=== PATIENT | male | born 1940 | race Asian ===

== ENCOUNTER → 2016-11-10 | Outpatient (CLI) | payer MEDICARE, MEDICAID ==
[~2016-11-10] MED LIST: ASP81TEC PO; CATHETER FLUSH 10 ML SYR IV PRN; CIPR500T78 PO; HYDR-3714 PO; OLME20TA21 PO; OMG1KC PO; PRAS10TA6 PO; ROSU20TA14 PO; SILO8CAP PO
[2016-11-10 09:29] VITALS: BP 159/85
[2016-11-10 09:33] VITALS: BP 136/82
[2016-11-10 09:34] LABS: ALANINE AMINOTRANSFERASE 27 U/L (0-55); ALBUMIN 4.3 GM/DL (3.2-4.5); ANION GAP 9 MMOL/L (5-14); ASPARTATE AMINO TRANSFERASE 22 U/L (5-34); BLOOD UREA NITROGEN 21 MG/DL (7-18); BUN/CREATININE RATIO 24; CALCIUM 9.6 MG/DL (8.5-10.1); CARBON DIOXIDE 26 MMOL/L (21-32); CHLORIDE 106 MMOL/L (98-107); CHOLESTEROL 125 MG/DL (< 200); CREATININE SERUM 0.88 MG/DL (0.60-1.30); DIRECT LDL 66 MG/DL (1-129); GFR ESTIMATED > 60; GLUCOSE 102 MG/DL (70-105); POTASSIUM 4.5 MMOL/L (3.6-5.0); SODIUM 141 MMOL/L (135-145); TOTAL PROTEIN 7.2 GM/DL (6.4-8.2); TRIGLYCERIDES 85 MG/DL (<150); VLDL CHOLESTEROL 17 MG/DL (5-40)
--- NOTE | 2016-11-11 08:40 | STRESS TEST ---
DATE OF SERVICE: 11/10/2016 REFERRING PHYSICIAN: Dr. Rocio Carter, [facility]. FINDINGS: Baseline heart rate is 68. Baseline blood pressure 116/77. Baseline EKG is sinus rhythm with no ischemic changes. SUMMARY: The patient started exercising with the baseline heart rate, blood pressure and EKG mentioned above. At minute 5 patient was injected with 27.7 mCi of technetium-99 Myoview. He was able to finish a total of 6 minutes on standard Jayy protocol, achieving maximum heart rate of 135, which is 95% of maximum expected heart rate. With peak exercise level EKG was showing no arrhythmia, minimal and diagnostic changes. Blood pressure at peak was 159/85, during recovery heart rate and blood pressure returned to baseline. EKG returned to baseline. The resting and stress images were reviewed and compared in the short axis, horizontal long axis, and vertical long axis views. Review of the images showed diaphragmatic attenuation with no significant ischemia or infarction. SSS is 2, SDS 2, TID value 1.02. On the gated images, the left ventricle appeared to be a normal size with normal contractility, calculated ejection fraction 61%. CONCLUSION: 1. Good exercise tolerance, a total of 6 minutes/7.3 mets on standard Jayy protocol, achieving 95% of maximum expected heart rate. 2. Appropriate heart rate and blood pressure response to exercise returned to baseline during recovery. 3. Minimal and diagnostic EKG changes with exercise returned to baseline during recovery. 4. Diaphragmatic attenuation with no ischemia or infarction on SPECT images. 5. Normal left ventricular size with normal contractility, calculated ejection fraction 61%. Job ID: [id number] DocumentID: [id number] Dictated Date: 11/10/2016 14:12:14 Laser Systems Engineer Date: 11/10/2016 14:28:58 Dictated By: CLAUDIA VELA MD
--- NOTE | 2016-11-11 13:48 | Physician Query-Final Dx ---
NARCISA MANCIA 11/11/16 1348: Clinic Account Progress/Dx Physician Query: Please give an additional diagnosis for the PSA test. thank you Date of Service Nov 10, 2016 at 07:35 CLAUDIA VELA MD 11/16/16 1547: Clinic Account Progress/Dx DIAGNOSIS: Diagnosis Benign prostatic hypertrophy Dysuria NARCISA MANCIA Nov 11, 2016 13:48 CLAUDIA VELA MD Nov 16, 2016 15:47
== END ==
LOC: CARD 07:35
PROVIDERS: ATTEND Internal Medicine Cardiovascular Disease
DX: R07.89 Other chest pain (principal); E11.9 Type 2 diabetes mellitus without complications; R39.11 Hesitancy of micturition; I25.83 Coronary atherosclerosis due to lipid rich plaque; I10 Essential (primary) hypertension; E78.2 Mixed hyperlipidemia; N20.0 Calculus of kidney
CPT/HCPCS: 36415; 78452; 80053; 80061; 83036; 84153; 93017

== ENCOUNTER → 2017-05-25 | Outpatient (CLI) | payer MEDICARE, MEDICAID ==
[~2017-05-25] MED LIST changes: -CATHETER FLUSH 10 ML SYR IV PRN
[2017-05-25 14:26] LABS: BASOPHILS % (AUTO) 0 % (0-10); EOSINOPHILS # (AUTO) 0.2 10^3/uL (0.0-0.3); EOSINOPHILS % (AUTO) 2 % (0-10); HEMATOCRIT 41 % (40-54); HEMOGLOBIN 13.6 G/DL (13.3-17.7); LYMPHOCYTES # (AUTO) 2.4 X 10^3 (1.0-4.0); LYMPHOCYTES % (AUTO) 31 % (12-44); MEAN CORPUSCULAR HEMOGLOBIN 31 PG (25-34); MEAN CORPUSCULAR HGB CONC 33 G/DL (32-36); MEAN CORPUSCULAR VOLUME 95 FL (80-99); MEAN PLATELET VOLUME 9.4 FL (7.4-10.4); MONOCYTES # (AUTO) 0.9 X 10^3 (0.0-1.0); MONOCYTES % (AUTO) 12 % (0-12); NEUTROPHILS # (AUTO) 4.3 X 10^3 (1.8-7.8); NEUTROPHILS % (AUTO) 55 % (42-75); PLATELET COUNT 245 10^3/uL (130-400); RED BLOOD COUNT 4.33 10^6/uL (4.35-5.85); RED CELL DISTRIBUTION WIDTH 12.2 % (10.0-14.5); WHITE BLOOD COUNT 7.7 10^3/uL (4.3-11.0)
[2017-05-25 14:31] LABS: BILIRUBIN,URINE NEGATIVE (NEGATIVE); CLARITY,URINE CLEAR; COLOR,URINE YELLOW; GLUCOSE, URINE (UA) NEGATIVE (NEGATIVE); KETONES,URINE NEGATIVE (NEGATIVE); LEUKOCYTE ESTERASE ,URINE 1+ (NEGATIVE); NITRITE,URINE NEGATIVE (NEGATIVE); PH,URINE 6 (5-9); PROTEIN,URINE 2+ (NEGATIVE); UROBILINOGEN,URINE NORMAL (NORMAL)
[2017-05-25 14:42] LABS: BACTERIA,URINE TRACE /HPF
[2017-05-25 14:47] LABS: ALANINE AMINOTRANSFERASE 25 U/L (0-55); ALBUMIN 4.2 GM/DL (3.2-4.5); ALKALINE PHOSPHATASE 59 U/L (40-136); BILIRUBIN,TOTAL 0.5 MG/DL (0.1-1.0); BUN/CREATININE RATIO 16; CALCIUM 9.6 MG/DL (8.5-10.1); CARBON DIOXIDE 29 MMOL/L (21-32); CHLORIDE 104 MMOL/L (98-107); CREATININE SERUM 0.93 MG/DL (0.60-1.30); GFR ESTIMATED > 60; GLUCOSE 105 MG/DL (70-105); POTASSIUM 4.8 MMOL/L (3.6-5.0); SODIUM 140 MMOL/L (135-145); TOTAL PROTEIN 7.3 GM/DL (6.4-8.2)
== END ==
LOC: LAB 14:07
PROVIDERS: ATTEND Internal Medicine Cardiovascular Disease
DX: R00.2 Palpitations (principal); I25.10 Atherosclerotic heart disease of native coronary artery without angina pectoris; E78.2 Mixed hyperlipidemia; I10 Essential (primary) hypertension; R35.8 Other polyuria
CPT/HCPCS: 36415; 80053; 81000; 85025

== ENCOUNTER 2017-06-13 13:00 | Outpatient (CLI) | payer MEDICARE, MEDICAID ==
[~2017-06-13] VITALS: Ht 172.7 cm; Wt 70.8 kg
[2017-06-14] MEDS ORDERED: GLUC-116 PO (13:41)
[2017-06-14] MEDS ORDERED: METF500T4 PO (13:41)
[2017-06-14] MEDS ORDERED: VITA-189 PO (13:41)
[2017-06-14] MEDS ORDERED: MELO15TA39 PO (13:41)
[2017-06-14] MEDS ORDERED: PANT40TA2 PO (14:25)
[2017-06-14] MEDS ORDERED: SUCR1TAB36 PO (14:25)
== END 2017-06-13 13:31 ==
LOC: PREOP 13:00
PROVIDERS: ATTEND Surgery
DX: Z01.818 Encounter for other preprocedural examination (principal); Z12.11 Encounter for screening for malignant neoplasm of colon; K21.9 Gastro-esophageal reflux disease without esophagitis

== ENCOUNTER 2017-06-14 12:21 | Day surgery (SDC) | payer MEDICARE, MEDICAID ==
[~2017-06-14] VITALS: Ht 172.7 cm; Wt 70.8 kg
--- OUTSIDE RECORDS SUMMARY | 2017-06-14 12:25 | XMS REPORT | Continuity of Care Document ---
Author Author [facility] Address Unknown Phone Unavailable Allergies Active Description Code Type Severity Reaction Onset Reported/Identified Relationship to Patient Clinical Status Yes No Known Drug Allergies [id number] Drug Allergy Unknown N/A 10/28/2012 Medications There is no data. Problems Date Dx Coded Attending Type Code Diagnosis Diagnosed By 12/21/2010 JULI OLGUIN DO V03.82 PPV23 (PNEUMOVAX) DX 12/21/2010 JULI OLGUIN DO V06.1 TDAP DX 12/21/2010 WHITE DDS, MEHRAN Manriquez V03.82 PPV23 (PNEUMOVAX) DX 12/21/2010 WHITE DDS, MEHRAN Manriquez V06.1 TDAP DX 12/21/2010 PURVI DDS, AMAURY Restrepo V03.82 PPV23 (PNEUMOVAX) DX 12/21/2010 PURVI DDS, AMAURY Restrepo V06.1 TDAP DX 12/21/2010 JULI OLGUIN DO V03.82 PPV23 (PNEUMOVAX) DX 12/21/2010 JULI OLGUIN DO V06.1 TDAP DX 12/21/2010 WHITE DDS, MARANDA Rayo V03.82 PPV23 (PNEUMOVAX) DX 12/21/2010 WHITE DDS, MARANDA Rayo V06.1 TDAP DX 10/28/2012 CLAUDIA CANTOR MD Ot 401.9 HYPERTENSION NOS 10/28/2012 CLAUDIA CANTOR MD Ot 411.1 INTERMED CORONARY SYND 10/28/2012 CLAUDIA CANTOR MD Ot 414.01 CORONARY ATHEROSCLEROSIS OF [place] CORON 10/28/2012 CLAUDIA CANTOR MD Ot V13.01 PERSONAL HISTORY OF URINARY CALCULI 10/28/2012 CLAUDIA CANTOR MD Ot V58.69 OTH MED,LT,CURRENT USE 01/08/2013 JULI OLGUIN DO 250.00 DIABETES II CONTROLLED (UNCOMPLICATED) 01/08/2013 JULI OLGUIN DO 414.00 CAD 01/08/2013 OLGUIN DO, JULI K 550.90 HERNIA INGUINAL 01/08/2013 OLGUIN DO, JULI K 600.00 BPH W/O OBSTRUCTUION 01/08/2013 OLGUIN DO, JULI K V04.81 FLU SHOT 01/08/2013 OLGUIN DO, JULI K V70.0 EXAM - ROUTINE H&P 01/08/2013 OLGUIN DO, JULI K V76.44 PROSTATE CANCER SCREENING 01/08/2013 WHITE DDS, MEHRAN D 250.00 DIABETES II CONTROLLED (UNCOMPLICATED) 01/08/2013 WHITE DDS, MEHRAN D 414.00 CAD 01/08/2013 WHITE DDS, MEHRAN D 550.90 HERNIA INGUINAL 01/08/2013 WHITE DDS, MEHRAN D 600.00 BPH W/O OBSTRUCTUION 01/08/2013 WHITE DDS, MEHRAN D V04.81 FLU SHOT 01/08/2013 WHITE DDS, MEHRAN D V70.0 EXAM - ROUTINE H&P 01/08/2013 WHITE DDS, MEHRAN Manriquez V76.44 PROSTATE CANCER SCREENING 01/08/2013 PURVI DDS, AMAURY Restrepo 250.00 DIABETES II CONTROLLED (UNCOMPLICATED) 01/08/2013 PURVI DDS, AMAURY Restrepo 414.00 CAD 01/08/2013 PURVI DDS, AMAURY Restrepo 550.90 HERNIA INGUINAL 01/08/2013 PURVI DDS, AMAURY M 600.00 BPH W/O OBSTRUCTUION 01/08/2013 PURVI DDS, AMAURY aKye V04.81 FLU SHOT 01/08/2013 PURVI DDS, AMAURY Restrepo V70.0 EXAM - ROUTINE H&P 01/08/2013 PURVI DDS, AMAURY Restrepo V76.44 PROSTATE CANCER SCREENING 01/08/2013 OLGUIN DO, JULI K 250.00 DIABETES II CONTROLLED (UNCOMPLICATED) 01/08/2013 OLGUIN DO, JULI K 414.00 CAD 01/08/2013 OLGUIN DO, JULI K 550.90 HERNIA INGUINAL 01/08/2013 OLGUIN DO, JULI K 600.00 BPH W/O OBSTRUCTUION 01/08/2013 OLGUIN DO, JULI K V04.81 FLU SHOT 01/08/2013 OLGUIN DO, JULI K V70.0 EXAM - ROUTINE H&P 01/08/2013 OLGUIN DO, JULI K V76.44 PROSTATE CANCER SCREENING 01/08/2013 WHITE DDS, MARANDA Rayo 250.00 DIABETES II CONTROLLED (UNCOMPLICATED) 01/08/2013 WHITE DDSGURINDERON J 414.00 CAD 01/08/2013 WHITE DDSMARANDA J 550.90 HERNIA INGUINAL 01/08/2013 WHITE DDS, MARANDA J 600.00 BPH W/O OBSTRUCTUION 01/08/2013 WHITE DDSGURINDERON J V04.81 FLU SHOT 01/08/2013 WHITE DDSGURINDERON J V70.0 EXAM - ROUTINE H&P 01/08/2013 WHITE DDSMARANDA J V76.44 PROSTATE CANCER SCREENING 01/09/2013 JULI OLGUIN DO K V05.8 ZOSTAVAX DX 01/09/2013 WHITE DDSMEHRAN V05.8 ZOSTAVAX DX 01/09/2013 PURVI TERESASAMAURY V05.8 ZOSTAVAX DX 01/09/2013 JULI OLGUIN DO K V05.8 ZOSTAVAX DX 01/09/2013 WHITE DDSMARANDA J V05.8 ZOSTAVAX DX 12/11/2013 JACKIE SIMS, RADHAMES Pickett Ot 592.1 CALCULUS OF URETER 12/11/2013 JACKIE SIMS, RADHAMES Pickett Ot 789.09 ABDOMINAL PAIN, OTHER SPECIFIED SITE 12/24/2013 CLAU CHRISTY JULI K 272.4 HYPERLIPIDEMIA 12/24/2013 SEEMA OLGUIN DOA K 401.1 HYPERTENSION, BENIGN ESSENTIAL 12/24/2013 SEEMA OLGUIN DOA K 592.0 CALCULUS OF KIDNEY 12/24/2013 SEEMA OLGUIN DOA K 715.00 OSTEOARTHROSIS GENERALIZED INVOLVING UNSPECIFIED SITE 12/24/2013 WHITE DDSMARANDA J 272.4 HYPERLIPIDEMIA 12/24/2013 WHITE DDSMARANDA J 401.1 HYPERTENSION, BENIGN ESSENTIAL 12/24/2013 WHITE DDSMARANDA J 592.0 CALCULUS OF KIDNEY 12/24/2013 WHITE DDSMARANDA J 715.00 OSTEOARTHROSIS GENERALIZED INVOLVING UNSPECIFIED SITE 02/01/2014 CLAUDIA CANTOR MD Ot 396.3 02/01/2014 CLAUDIA CANTOR MD Ot 397.0 02/01/2014 CLAUDIA CANTOR MD Ot 414.00 02/01/2014 CLAUDIA CANTOR MD Ot 272.2 02/01/2014 MIRIAN MD, BASHAR J Ot 396.3 02/01/2014 MIRIAN SIMS, CLAUDIA J Ot 397.0 02/01/2014 MIRIAN SIMS, CLAUDIA J Ot 401.9 02/01/2014 MIRIAN SIMS, MARGARETHAR J Ot 414.00 02/01/2014 MIRIAN SIMS, MARGARETHAR J Ot 786.50 02/01/2014 KOFFI SIMS, HARJINDER A Ot 550.90 02/01/2014 KOFFI SIMS, HARJINDER A Ot 592.0 02/01/2014 KOFFI SIMS, HARJINDER A Ot 592.1 02/01/2014 KOFFI SIMS, HARJINDER A Ot 550.90 02/01/2014 KOFFI SIMS, HARJINDER A Ot 592.0 02/01/2014 KOFFI SIMS, HARJINDER A Ot 592.1 02/01/2014 MIRIAN SIMS, CLAUDIA J Ot 272.2 02/01/2014 MIRIAN SIMS, CLAUDIA Rayo Ot 396.3 02/01/2014 MIRIAN SIMS, CLAUDIA J Ot 397.0 02/01/2014 MIRIAN SIMS, CLAUDIA J Ot 401.9 02/01/2014 MIRIAN SIMS, MARGARETHAR J Ot 414.00 02/01/2014 MIRIAN SIMS, CLAUDIA J Ot 786.50 02/06/2014 MIRIAN SIMS, CLAUDIA Rayo Ot 272.2 02/06/2014 MIRIAN SIMS, CLAUDIA J Ot 396.3 02/06/2014 MIRIAN SIMS, CLAUDIA J Ot 397.0 02/06/2014 MIRIAN SIMS, CLAUDIA J Ot 401.9 02/06/2014 MIRIAN SIMS, CLAUDIA J Ot 414.00 02/06/2014 MIRIAN SIMS, CLAUDIA J Ot 786.50 02/06/2014 KOFFI SIMS, HARJINDER A Ot 550.90 02/06/2014 KOFFI SIMS, HARJINDER A Ot 592.0 02/06/2014 KOFFI SIMS, HARJINDER A Ot 592.1 05/29/2015 CLAUDIA CANTOR MD Ot E78.2 05/29/2015 CLAUDIA CANTOR MD J Ot I10 05/29/2015 CLAUDIA CANTOR MD Ot I25.10 05/29/2015 CLAUDIA CANTOR MD Ot R07.9 06/20/2015 CLAUDIA CANTOR MD Ot 396.3 06/20/2015 CLAUDIA CANTOR MD Ot 397.0 06/20/2015 CLAUDIA CANTOR MD Ot 414.00 06/20/2015 CLAUDIA CANTOR MD Ot 272.2 06/20/2015 CLAUDIA CANTOR MD Ot 396.3 06/20/2015 CLAUDIA CANTOR MD Ot 397.0 06/20/2015 CLAUDIA CANTOR MD Ot 401.9 06/20/2015 CLAUDIA CANTOR MD Ot 414.00 06/20/2015 CLAUDIA CANTOR MD Ot 786.50 06/20/2015 HARJINDER PRUETT MD Ot 550.90 06/20/2015 HARJINDER PRUETT MD Ot 592.0 06/20/2015 HARJINDER PRUETT MD Ot 592.1 06/20/2015 CLAUDIA CANTOR MD Ot E78.2 06/20/2015 CLAUDIA CANTOR MD Ot I10 06/20/2015 CLAUDIA CANTOR MD Ot I25.10 06/20/2015 CLAUDIA CANTOR MD Ot R07.9 09/08/2015 CLAUDIA CANTOR MD Ot E78.2 MIXED HYPERLIPIDEMIA 09/08/2015 CLAUDIA CANTOR MD Ot I10 ESSENTIAL (PRIMARY) HYPERTENSION 09/08/2015 CLAUDIA CANTOR MD Ot I25.10 ATHSCL HEART DISEASE OF [place] CORONARY 09/08/2015 CLAUDIA CANTOR MD Ot R07.9 CHEST PAIN, UNSPECIFIED 09/09/2015 CLAUDIA CNATOR MD Ot E78.2 MIXED HYPERLIPIDEMIA 09/09/2015 CLAUDIA CANTOR MD Ot I10 ESSENTIAL (PRIMARY) HYPERTENSION 09/09/2015 CLAUDIA CANTOR MD Ot I25.10 ATHSCL HEART DISEASE OF [place] CORONARY 09/09/2015 CLAUDIA CANTOR MD Ot R07.9 CHEST PAIN, UNSPECIFIED 10/28/2015 CLAUDIA CANTOR MD Ot 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 10/28/2015 CLAUDIA CANTOR MD Ot 397.0 TRICUSPID VALVE DISEASE 10/28/2015 CLAUDIA CANTOR MD Ot 414.00 CORON ATHEROSCLER NOS TYPE VESSEL, NATIV 10/28/2015 CLAUDIA CANTOR MD Ot 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 10/28/2015 CLAUDIA CANTOR MD Ot 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 10/28/2015 CLAUDIA CANTOR MD Ot 397.0 TRICUSPID VALVE DISEASE 10/28/2015 CLAUDIA CANTOR MD Ot 401.9 HYPERTENSION NOS 10/28/2015 CLAUDIA CANTOR MD Ot 414.00 CORON ATHEROSCLER NOS TYPE VESSEL, NATIV 10/28/2015 CLAUDIA CANTOR MD Ot 786.50 CHEST PAIN NOS 10/28/2015 HARJINDER PRUETT MD Ot 550.90 UNILAT INGUINAL HERNIA 10/28/2015 HARJINDER PRUETT MD Ot 592.0 CALCULUS OF KIDNEY 10/28/2015 HARJINDER PRUETT MD Ot 592.1 CALCULUS OF URETER 10/28/2015 CLAUDIA CANTOR MD Ot E78.2 MIXED HYPERLIPIDEMIA 10/28/2015 CLAUDIA CANTOR MD Ot I10 ESSENTIAL (PRIMARY) HYPERTENSION 10/28/2015 CLAUDIA CANTOR MD Ot I25.10 ATHSCL HEART DISEASE OF [place] CORONARY 10/28/2015 CLAUDIA CANTOR MD Ot R07.9 CHEST PAIN, UNSPECIFIED 10/30/2015 CLAUDIA CANTOR MD Ot E78.2 MIXED HYPERLIPIDEMIA 10/30/2015 CLAUDIA CANTOR MD Ot I10 ESSENTIAL (PRIMARY) HYPERTENSION 10/30/2015 CLAUDIA CANTOR MD Ot I25.10 ATHSCL HEART DISEASE OF [place] CORONARY 10/30/2015 CLAUDIA CANTOR MD Ot N20.0 CALCULUS OF KIDNEY 10/30/2015 CLAUDIA CANTOR MD Ot R07.9 CHEST PAIN, UNSPECIFIED 10/30/2015 CLAUDIA CANTOR MD Ot E78.2 MIXED HYPERLIPIDEMIA 10/30/2015 CLAUDIA CANTOR MD Ot I10 ESSENTIAL (PRIMARY) HYPERTENSION 10/30/2015 CLAUDIA CANTOR MD Ot I25.10 ATHSCL HEART DISEASE OF [place] CORONARY 10/30/2015 CLAUDIA CANTOR MD Ot N20.0 CALCULUS OF KIDNEY 10/30/2015 CLAUDIA CANTOR MD Ot R07.9 CHEST PAIN, UNSPECIFIED 11/04/2015 CLAUDIA CANTOR MD Ot 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 11/04/2015 CLAUDIA CANTOR MD Ot 397.0 TRICUSPID VALVE DISEASE 11/04/2015 CLAUDIA CANTOR MD Ot 414.00 CORON ATHEROSCLER NOS TYPE VESSEL, NATIV 11/04/2015 CLAUDIA CANTOR MD Ot 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 11/04/2015 CLAUDIA CANTOR MD Ot 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 11/04/2015 CLAUDIA CANTOR MD Ot 397.0 TRICUSPID VALVE DISEASE 11/04/2015 CLAUDIA CANTOR MD Ot 401.9 HYPERTENSION NOS 11/04/2015 CLAUDIA CANTOR MD Ot 414.00 CORON ATHEROSCLER NOS TYPE VESSEL, NATIV 11/04/2015 CLAUDIA CANTOR MD Ot 786.50 CHEST PAIN NOS 11/04/2015 KOFFI SIMS, HARJINDER Pope Ot 550.90 UNILAT INGUINAL HERNIA 11/04/2015 HARJINDER PRUETT MD Ot 592.0 CALCULUS OF KIDNEY 11/04/2015 HARJINDER PRUETT MD Ot 592.1 CALCULUS OF URETER 11/04/2015 CLAUDIA CANTOR MD Ot E78.2 MIXED HYPERLIPIDEMIA 11/04/2015 CLAUDIA CANTOR MD Ot I10 ESSENTIAL (PRIMARY) HYPERTENSION 11/04/2015 CLAUDIA CANTOR MD Ot I25.10 ATHSCL HEART DISEASE OF [place] CORONARY 11/04/2015 CLAUDIA CANTOR MD Ot R07.9 CHEST PAIN, UNSPECIFIED 11/04/2015 CLAUDIA CANTOR MD Ot E78.2 MIXED HYPERLIPIDEMIA 11/04/2015 CLAUDIA CANTOR MD Ot I10 ESSENTIAL (PRIMARY) HYPERTENSION 11/04/2015 CLAUDIA CANTOR MD Ot I25.10 ATHSCL HEART DISEASE OF [place] CORONARY 11/04/2015 CLAUDIA CANTOR MD Ot N20.0 CALCULUS OF KIDNEY 11/04/2015 CLAUDIA CANTOR MD Ot R07.9 CHEST PAIN, UNSPECIFIED 12/04/2015 CLAUDIA CANTOR MD Ot E78.2 MIXED HYPERLIPIDEMIA 12/04/2015 CLAUDIA CANTOR MD Ot I10 ESSENTIAL (PRIMARY) HYPERTENSION 12/04/2015 CLAUDIA CANTOR MD Ot I25.10 ATHSCL HEART DISEASE OF [place] CORONARY 12/04/2015 CLAUDIA CANTOR MD Ot N20.0 CALCULUS OF KIDNEY 12/04/2015 CLAUDIA CANTOR MD Ot R07.9 CHEST PAIN, UNSPECIFIED 01/12/2016 CLAUDIA CANTOR MD Ot E11.9 TYPE 2 DIABETES MELLITUS WITHOUT COMPLIC 01/12/2016 CLAUDIA CANTOR MD Ot E78.2 MIXED HYPERLIPIDEMIA 01/12/2016 CLAUDIA CANTOR MD Ot I10 ESSENTIAL (PRIMARY) HYPERTENSION 01/12/2016 CLAUDIA CANTOR MD Ot I25.10 ATHSCL HEART DISEASE OF [place] CORONARY 01/12/2016 CLAUDIA CANTOR MD Ot 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 01/12/2016 CLAUDIA CANTOR MD Ot 397.0 TRICUSPID VALVE DISEASE 01/12/2016 CLAUDIA CANTOR MD Ot 414.00 CORON ATHEROSCLER NOS TYPE VESSEL, NATIV 01/12/2016 CLAUDIA CANTOR MD Ot 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 01/12/2016 CLAUDIA CANTOR MD Ot 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 01/12/2016 CLAUDIA CANTOR MD Ot 397.0 TRICUSPID VALVE DISEASE 01/12/2016 CLAUDIA CANTOR MD Ot 401.9 HYPERTENSION NOS 01/12/2016 CLAUDIA CANTOR MD Ot 414.00 CORON ATHEROSCLER NOS TYPE VESSEL, NATIV 01/12/2016 CLAUDIA CANTOR MD Ot 786.50 CHEST PAIN NOS 01/12/2016 KOFFI SIMS, HARJINDER Pope Ot 550.90 UNILAT INGUINAL HERNIA 01/12/2016 HARJINDER PRUETT MD Ot 592.0 CALCULUS OF KIDNEY 01/12/2016 HARJINDER PRUETT MD Ot 592.1 CALCULUS OF URETER 01/12/2016 CLAUDIA CANTOR MD Ot E78.2 MIXED HYPERLIPIDEMIA 01/12/2016 CLAUDIA CANTOR MD Ot I10 ESSENTIAL (PRIMARY) HYPERTENSION 01/12/2016 CLAUDIA CANTOR MD Ot I25.10 ATHSCL HEART DISEASE OF [place] CORONARY 01/12/2016 CLAUDIA CANTOR MD Ot R07.9 CHEST PAIN, UNSPECIFIED 01/12/2016 CLAUDIA CANTOR MD Ot E78.2 MIXED HYPERLIPIDEMIA 01/12/2016 CLAUDIA CANTOR MD Ot I10 ESSENTIAL (PRIMARY) HYPERTENSION 01/12/2016 CLAUDIA CANTOR MD Ot I25.10 ATHSCL HEART DISEASE OF [place] CORONARY 01/12/2016 CLAUDIA CANTOR MD Ot N20.0 CALCULUS OF KIDNEY 01/12/2016 CLAUDIA CANTOR MD Ot R07.9 CHEST PAIN, UNSPECIFIED 01/12/2016 CLAUDIA CANTOR MD Ot E11.9 TYPE 2 DIABETES MELLITUS WITHOUT COMPLIC 01/12/2016 CLAUDIA CANTOR MD Ot E78.2 MIXED HYPERLIPIDEMIA 01/12/2016 CLAUDIA CANTOR MD Ot I10 ESSENTIAL (PRIMARY) HYPERTENSION 01/12/2016 CLAUDIA CANTOR MD Ot I25.10 ATHSCL HEART DISEASE OF [place] CORONARY 01/13/2016 CLAUDIA CANTOR MD Ot E11.9 TYPE 2 DIABETES MELLITUS WITHOUT COMPLIC 01/13/2016 CLAUDIA CANTOR MD Ot E78.2 MIXED HYPERLIPIDEMIA 01/13/2016 CLAUDIA CANTOR MD Ot I10 ESSENTIAL (PRIMARY) HYPERTENSION 01/13/2016 CLAUDIA CANTOR MD Ot I25.10 ATHSCL HEART DISEASE OF [place] CORONARY 01/21/2016 JULI OLGUIN DO K Ot M19.042 PRIMARY OSTEOARTHRITIS, LEFT HAND 02/03/2016 JULI OLGUIN DO Ot M19.042 PRIMARY OSTEOARTHRITIS, LEFT HAND 02/03/2016 CLAUDIA CANTOR MD Ot E11.9 TYPE 2 DIABETES MELLITUS WITHOUT COMPLIC 02/03/2016 CLAUDIA CANTOR MD Ot E78.2 MIXED HYPERLIPIDEMIA 02/03/2016 CLAUDIA CANTOR MD Ot I10 ESSENTIAL (PRIMARY) HYPERTENSION 02/03/2016 CLAUDIA CANTOR MD Ot I25.10 ATHSCL HEART DISEASE OF [place] CORONARY 02/03/2016 CLAUDIA CANTOR MD Ot E11.9 TYPE 2 DIABETES MELLITUS WITHOUT COMPLIC 02/03/2016 CLAUDIA CANTOR MD Ot E78.2 MIXED HYPERLIPIDEMIA 02/03/2016 CLAUDIA CANTOR MD Ot I10 ESSENTIAL (PRIMARY) HYPERTENSION 02/03/2016 CLAUDIA CANTOR MD Ot I25.10 ATHSCL HEART DISEASE OF [place] CORONARY 02/04/2016 CLAUDIA CANTOR MD Ot E11.9 TYPE 2 DIABETES MELLITUS WITHOUT COMPLIC 02/04/2016 CLAUDIA CANTOR MD Ot E78.2 MIXED HYPERLIPIDEMIA 02/04/2016 CLAUDIA CANTOR MD Ot I10 ESSENTIAL (PRIMARY) HYPERTENSION 02/04/2016 CLAUDIA CANTOR MD Ot I25.10 ATHSCL HEART DISEASE OF [place] CORONARY 02/04/2016 JULI OLGUIN DO Ot M19.042 PRIMARY OSTEOARTHRITIS, LEFT HAND 03/04/2016 JULI OLGUIN DO Ot M19.042 PRIMARY OSTEOARTHRITIS, LEFT HAND 03/22/2016 CLAUDIA CANTOR MD Ot 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 03/22/2016 CLAUDIA CANTOR MD Ot 397.0 TRICUSPID VALVE DISEASE 03/22/2016 CLAUDIA CANTOR MD Ot 414.00 CORON ATHEROSCLER NOS TYPE VESSEL, NATIV 03/22/2016 CLAUDIA CANTOR MD Ot 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 03/22/2016 CLAUDIA CANTOR MD Ot 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 03/22/2016 CLAUDIA CANTOR MD Ot 397.0 TRICUSPID VALVE DISEASE 03/22/2016 CLAUDIA CANTOR MD Ot 401.9 HYPERTENSION NOS 03/22/2016 CLAUDIA CANTOR MD Ot 414.00 CORON ATHEROSCLER NOS TYPE VESSEL, NATIV 03/22/2016 CLAUDIA CANTOR MD Ot 786.50 CHEST PAIN NOS 03/22/2016 KOFFI SIMS, HARJINDER Pope Ot 550.90 UNILAT INGUINAL HERNIA 03/22/2016 HARJINDER PRUETT MD Ot 592.0 CALCULUS OF KIDNEY 03/22/2016 HARJINDER PRUETT MD Ot 592.1 CALCULUS OF URETER 03/22/2016 CLAUDIA CANTOR MD Ot E78.2 MIXED HYPERLIPIDEMIA 03/22/2016 CLAUDIA CANTOR MD Ot I10 ESSENTIAL (PRIMARY) HYPERTENSION 03/22/2016 CLAUDIA CANTOR MD Ot I25.10 ATHSCL HEART DISEASE OF [place] CORONARY 03/22/2016 CLAUDIA CANTOR MD Ot R07.9 CHEST PAIN, UNSPECIFIED 03/22/2016 CLAUDIA CANTOR MD Ot E78.2 MIXED HYPERLIPIDEMIA 03/22/2016 CLAUDIA CANTOR MD Ot I10 ESSENTIAL (PRIMARY) HYPERTENSION 03/22/2016 CLAUDIA CANTOR MD Ot I25.10 ATHSCL HEART DISEASE OF [place] CORONARY 03/22/2016 CLAUDIA CANTOR MD Ot N20.0 CALCULUS OF KIDNEY 03/22/2016 CLAUDIA CANTOR MD Ot R07.9 CHEST PAIN, UNSPECIFIED 03/22/2016 CLAUDIA CANTOR MD Ot E11.9 TYPE 2 DIABETES MELLITUS WITHOUT COMPLIC 03/22/2016 CLAUDIA CANTOR MD Ot E78.2 MIXED HYPERLIPIDEMIA 03/22/2016 CLAUDIA CANTOR MD Ot I10 ESSENTIAL (PRIMARY) HYPERTENSION 03/22/2016 CLAUDIA CANTOR MD Ot I25.10 ATHSCL HEART DISEASE OF [place] CORONARY 11/10/2016 CLAUDIA CANTOR MD Ot 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 11/10/2016 CLAUDIA CANTOR MD Ot 397.0 TRICUSPID VALVE DISEASE 11/10/2016 CLAUDIA CANTOR MD Ot 414.00 CORON ATHEROSCLER NOS TYPE VESSEL, NATIV 11/10/2016 CLAUDIA CANTOR MD Ot 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 11/10/2016 CLAUDIA CANTOR MD Ot 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 11/10/2016 CLAUDIA CANTOR MD Ot 397.0 TRICUSPID VALVE DISEASE 11/10/2016 CLAUDIA CANTOR MD Ot 401.9 HYPERTENSION NOS 11/10/2016 CLAUDIA CANTOR MD Ot 414.00 CORON ATHEROSCLER NOS TYPE VESSEL, NATIV 11/10/2016 CLAUDIA CANTOR MD Ot 786.50 CHEST PAIN NOS 11/10/2016 KOFFI SIMS, HARJINDER Pope Ot 550.90 UNILAT INGUINAL HERNIA 11/10/2016 HARJINDER PRUETT MD Ot 592.0 CALCULUS OF KIDNEY 11/10/2016 HARJINDER PRUETT MD Ot 592.1 CALCULUS OF URETER 11/10/2016 CLAUDIA CANTOR MD Ot E78.2 MIXED HYPERLIPIDEMIA 11/10/2016 CLAUDIA CANTOR MD Ot I10 ESSENTIAL (PRIMARY) HYPERTENSION 11/10/2016 CLAUDIA CANTOR MD Ot I25.10 ATHSCL HEART DISEASE OF [place] CORONARY 11/10/2016 CLAUDIA CANTOR MD Ot R07.9 CHEST PAIN, UNSPECIFIED 11/10/2016 CLAUDIA CANTOR MD Ot E78.2 MIXED HYPERLIPIDEMIA 11/10/2016 CLAUDIA CANTOR MD Ot I10 ESSENTIAL (PRIMARY) HYPERTENSION 11/10/2016 CLAUDIA CANTOR MD Ot I25.10 ATHSCL HEART DISEASE OF [place] CORONARY 11/10/2016 CLAUDIA CANTOR MD Ot N20.0 CALCULUS OF KIDNEY 11/10/2016 CLAUDIA CANTOR MD Ot R07.9 CHEST PAIN, UNSPECIFIED 11/10/2016 CLAUDIA CANTOR MD Ot E11.9 TYPE 2 DIABETES MELLITUS WITHOUT COMPLIC 11/10/2016 CLAUDIA CANTOR MD Ot E78.2 MIXED HYPERLIPIDEMIA 11/10/2016 CLAUDIA CANTOR MD Ot I10 ESSENTIAL (PRIMARY) HYPERTENSION 11/10/2016 CLAUDIA CANTOR MD Ot I25.10 ATHSCL HEART DISEASE OF [place] CORONARY 12/06/2016 CLAUDIA CANTOR MD Ot E11.9 TYPE 2 DIABETES MELLITUS WITHOUT COMPLIC 12/06/2016 CLAUDIA CANTOR MD Ot E78.2 MIXED HYPERLIPIDEMIA 12/06/2016 CLAUDIA CANTOR MD Ot I10 ESSENTIAL (PRIMARY) HYPERTENSION 12/06/2016 CLAUDIA CANTOR MD Ot I25.83 CORONARY ATHEROSCLEROSIS DUE TO LIPID RI 12/06/2016 CLAUDIA CANTOR MD Ot N20.0 CALCULUS OF KIDNEY 12/06/2016 CLAUDIA CANTOR MD Ot R07.89 OTHER CHEST PAIN 12/06/2016 CLAUDIA CANTOR MD Ot R39.11 HESITANCY OF MICTURITION 12/14/2016 CLAUDIA CANTOR MD Ot E11.9 TYPE 2 DIABETES MELLITUS WITHOUT COMPLIC 12/14/2016 CLAUDIA CANTOR MD Ot E78.2 MIXED HYPERLIPIDEMIA 12/14/2016 CLAUDIA CANTOR MD Ot I10 ESSENTIAL (PRIMARY) HYPERTENSION 12/14/2016 CLAUDIA CANTOR MD Ot I25.83 CORONARY ATHEROSCLEROSIS DUE TO LIPID RI 12/14/2016 CLAUDIA CANTOR MD Ot N20.0 CALCULUS OF KIDNEY 12/14/2016 CLAUDIA CANTOR MD Ot R07.89 OTHER CHEST PAIN 12/14/2016 CLAUDIA CANTOR MD Ot R39.11 HESITANCY OF MICTURITION 05/26/2017 CLAUDIA CANTOR MD Ot E78.2 MIXED HYPERLIPIDEMIA 05/26/2017 CLAUDIA CANTOR MD Ot I10 ESSENTIAL (PRIMARY) HYPERTENSION 05/26/2017 CLAUDIA CANTOR MD Ot I25.10 ATHSCL HEART DISEASE OF [place] CORONARY 05/26/2017 CLAUDIA CANTOR MD Ot R00.2 PALPITATIONS 05/26/2017 CLAUDIA CANTOR MD Ot R35.8 OTHER POLYURIA 06/01/2017 CLAUDIA CANTOR MD Ot E78.2 MIXED HYPERLIPIDEMIA 06/01/2017 CLAUDIA CANTOR MD Ot I10 ESSENTIAL (PRIMARY) HYPERTENSION 06/01/2017 CLAUDIA CANTOR MD Ot I25.10 ATHSCL HEART DISEASE OF [place] CORONARY 06/01/2017 CLAUDIA CANTOR MD Ot R00.2 PALPITATIONS 06/01/2017 CLAUDIA CANTOR MD Ot R35.8 OTHER POLYURIA 06/01/2017 CLAUDIA CANTOR MD Ot E78.2 MIXED HYPERLIPIDEMIA 06/01/2017 CLAUDIA CANTOR MD Ot I10 ESSENTIAL (PRIMARY) HYPERTENSION 06/01/2017 CLAUDIA CANTOR MD Ot I25.10 ATHSCL HEART DISEASE OF [place] CORONARY 06/01/2017 CLAUDIA CANTOR MD Ot R00.2 PALPITATIONS 06/01/2017 CLAUDIA CANTOR MD Ot R35.8 OTHER POLYURIA 06/03/2017 CLAUDIA CANTOR MD Ot E78.2 MIXED HYPERLIPIDEMIA 06/03/2017 CLAUDIA CANTOR MD Ot I10 ESSENTIAL (PRIMARY) HYPERTENSION 06/03/2017 CLAUDIA CANTOR MD Ot I25.10 ATHSCL HEART DISEASE OF [place] CORONARY 06/03/2017 CLAUDIA CANTOR MD Ot R00.2 PALPITATIONS 06/03/2017 CLAUDIA CANTOR MD Ot R35.8 OTHER POLYURIA Procedures Code [place] [address] ROUTINE VENIPUNCTURE 01/08/2013 G0008 FLU ADMINISTRATION ( MEDICARE ONLY) 01/08/2013 46700 CBC 01/08/2013 2767193 GFR CALC (RESULT ONLY) 01/08/2013 27606 CMP 01/08/2013 83750 LIPID PANEL 01/08/2013 01650 A1C (RML) 01/08/2013 82542 TSH 01/08/2013 26727 PSA FREE AND TOTAL 01/12/2013 Cardiolog Claudia Cantor 04/12/2013 Urology Harjinder Pruett 04/12/2013 26148 KUB 12/24/2013 Results Test Result Range Comprehensive metabolic panel - 11/10/16 09:03 Serum or plasma sodium measurement (moles/volume) 141 mmol/L 135-145 Serum or plasma potassium measurement (moles/volume) 4.5 mmol/L 3.6-5.0 Serum or plasma chloride measurement (moles/volume) 106 mmol/L 98-107 Carbon dioxide 26 mmol/L 21-32 Serum or plasma anion gap determination (moles/volume) 9 mmol/L 5-14 Serum or plasma urea nitrogen measurement (mass/volume) 21 mg/dL 7-18 Serum or plasma creatinine measurement (mass/volume) 0.88 mg/dL 0.60-1.30 Serum or plasma urea nitrogen/creatinine mass ratio 24 NRG Serum or plasma creatinine measurement with calculation of estimated glomerular filtration rate > NRG Serum or plasma glucose measurement (mass/volume) 102 mg/dL 70-105 Serum or plasma calcium measurement (mass/volume) 9.6 mg/dL 8.5-10.1 Serum or plasma total bilirubin measurement (mass/volume) 1.0 mg/dL 0.1-1.0 Serum or plasma alkaline phosphatase measurement (enzymatic activity/volume) 49 U/L 40-136 Serum or plasma aspartate aminotransferase measurement (enzymatic activity/ volume) 22 U/L 5-34 Serum or plasma alanine aminotransferase measurement (enzymatic activity/volume ) 27 U/L 0-55 Serum or plasma protein measurement (mass/volume) 7.2 g/dL 6.4-8.2 Serum or plasma albumin measurement (mass/volume) 4.3 g/dL 3.2-4.5 Lipid 1996 panel - 11/10/16 09:03 Serum or plasma triglyceride measurement (mass/volume) 85 mg/dL <150 Serum or plasma cholesterol measurement (mass/volume) 125 mg/dL < 200 Serum or plasma cholesterol in HDL measurement (mass/volume) 46 mg/ dL 40-60 Cholesterol in LDL [mass/volume] in serum or plasma by direct assay 66 mg/dL 1-129 Serum or plasma cholesterol in VLDL measurement (mass/volume) 17 mg/ dL 5-40 Hemoglobin A1c - 11/10/16 09:03 Hemoglobin A1c 5.4 % 4.5-6.2 Prostate specific ag [mass/volume] in serum or plasma - 11/10/16 09:03 Prostate specific ag [mass/volume] in serum or plasma 0.76 % 0.00-4.00 Complete blood count (CBC) with automated white blood cell (WBC) differential - 05/25/17 14:19 Blood leukocytes automated count (number/volume) 7.7 10*3/uL 4.3-11.0 Blood erythrocytes automated count (number/volume) 4.33 10*6/uL 4.35-5.85 Venous blood hemoglobin measurement (mass/volume) 13.6 g/dL 13.3-17.7 Blood hematocrit (volume fraction) 41 % 40-54 Automated erythrocyte mean corpuscular volume 95 [foz_us] 80-99 Automated erythrocyte mean corpuscular hemoglobin (mass per erythrocyte) 31 pg 25-34 Automated erythrocyte mean corpuscular hemoglobin concentration measurement ( mass/volume) 33 g/dL 32-36 Automated erythrocyte distribution width ratio 12.2 % 10.0-14.5 Automated blood platelet count (count/volume) 245 10*3/uL 130-400 Automated blood platelet mean volume measurement 9.4 [foz_us] 7.4-10.4 Automated blood neutrophils/100 leukocytes 55 % 42-75 Automated blood lymphocytes/100 leukocytes 31 % 12-44 Blood monocytes/100 leukocytes 12 % 0-12 Automated blood eosinophils/100 leukocytes 2 % 0-10 Automated blood basophils/100 leukocytes 0 % 0-10 Blood neutrophils automated count (number/volume) 4.3 10*3 1.8-7.8 Blood lymphocytes automated count (number/volume) 2.4 10*3 1.0-4.0 Blood monocytes automated count (number/volume) 0.9 10*3 0.0-1.0 Automated eosinophil count 0.2 10*3/uL 0.0-0.3 Automated blood basophil count (count/volume) 0.0 10*3/uL 0.0-0.1 Comprehensive metabolic panel - 05/25/17 14:19 Serum or plasma sodium measurement (moles/volume) 140 mmol/L 135-145 Serum or plasma potassium measurement (moles/volume) 4.8 mmol/L 3.6-5.0 Serum or plasma chloride measurement (moles/volume) 104 mmol/L 98-107 Carbon dioxide 29 mmol/L 21-32 Serum or plasma anion gap determination (moles/volume) 7 mmol/L 5-14 Serum or plasma urea nitrogen measurement (mass/volume) 15 mg/dL 7-18 Serum or plasma creatinine measurement (mass/volume) 0.93 mg/dL 0.60-1.30 Serum or plasma urea nitrogen/creatinine mass ratio 16 NRG Serum or plasma creatinine measurement with calculation of estimated glomerular filtration rate > NRG Serum or plasma glucose measurement (mass/volume) 105 mg/dL 70-105 Serum or plasma calcium measurement (mass/volume) 9.6 mg/dL 8.5-10.1 Serum or plasma total bilirubin measurement (mass/volume) 0.5 mg/dL 0.1-1.0 Serum or plasma alkaline phosphatase measurement (enzymatic activity/volume) 59 U/L 40-136 Serum or plasma aspartate aminotransferase measurement (enzymatic activity/ volume) 22 U/L 5-34 Serum or plasma alanine aminotransferase measurement (enzymatic activity/volume ) 25 U/L 0-55 Serum or plasma protein measurement (mass/volume) 7.3 g/dL 6.4-8.2 Serum or plasma albumin measurement (mass/volume) 4.2 g/dL 3.2-4.5 Complete urinalysis with reflex to culture - 05/25/17 14:28 Urine color determination YELLOW NRG Urine clarity determination CLEAR NRG Urine pH measurement by test strip 6 5-9 Specific gravity of urine by test strip 1.025 1.016- 1.022 Urine protein assay by test strip, semi-quantitative 2+ NEGATIVE Urine glucose detection by automated test strip NEGATIVE NEGATIVE Erythrocytes detection in urine sediment by light microscopy 2+ NEGATIVE Urine ketones detection by automated test strip NEGATIVE NEGATIVE Urine nitrite detection by test strip NEGATIVE NEGATIVE Urine total bilirubin detection by test strip NEGATIVE NEGATIVE Urine urobilinogen measurement by automated test strip (mass/volume) NORMAL NORMAL Urine leukocyte esterase detection by dipstick 1+ NEGATIVE Automated urine sediment erythrocyte count by microscopy (number/high power field) NONE NRG Automated urine sediment leukocyte count by microscopy (number/high power field ) [HPF] NRG Bacteria detection in urine sediment by light microscopy TRACE NRG Squamous epithelial cells detection in urine sediment by light microscopy NONE NRG Crystals detection in urine sediment by light microscopy NONE NRG Casts detection in urine sediment by light microscopy NONE NRG Mucus detection in urine sediment by light microscopy LARGE NRG Complete urinalysis with reflex to culture NO NRG Encounters ACCT No. Visit Date/Time Discharge Status Pt. Type Provider Facility Loc./Unit Complaint [id number] 06/17/2014 07:54:00 06/17/2014 23:59:59 CLS Outpatient WHITE BRIISMARANDA J [id number] 12/24/2013 09:32:00 12/24/2013 23:59:59 CLS Outpatient JULI OLGUIN DO [id number] 04/12/2013 14:52:00 04/12/2013 23:59:59 CLS Outpatient PURVI DDSAMAURY [id number] 02/12/2013 12:05:00 02/12/2013 23:59:59 CLS Outpatient MEME DDMEHRAN Parker [id number] 01/09/2013 12:27:00 01/09/2013 23:59:59 CLS Outpatient CLAU CHRISTY JULI Workman [id number] 05/25/2017 14:07:00 05/25/2017 23:59:59 CLS Outpatient CLAUDIA CANTOR MD [facility] LAB R00.2 [id number] 11/10/2016 07:35:00 11/10/2016 23:59:59 CLS Outpatient CLAUDIA CANTOR MD [facility] CARD CAD I25.83,HTN I10 [id number] 02/13/2016 08:50:00 03/04/2016 13:46:00 DIS Outpatient JULI OLGUIN DO [facility] REHAB OA B HANDS [id number] 12/26/2015 08:44:00 12/26/2015 23:59:59 CLS Outpatient CLAUDIA CANTOR MD [facility] LAB CAD,MIXED HYPERLIPIDEMIA , HTN, DIABETES [id number] 10/29/2015 07:49:00 10/29/2015 23:59:59 CLS Outpatient CLAUDIA CANTOR MD [facility] CARD CAD,CHEST PAIN,HTN, MIXED HLP [id number] 05/28/2015 08:15:00 05/28/2015 23:59:59 CLS Outpatient CLAUDIA CANTOR MD [facility] LAB CAD, CHEST PAIN, HTN, MIXED HYPERLIPIDEMIA [id number] 12/11/2013 10:26:00 12/11/2013 23:59:59 CLS Outpatient HARJINDER PRUETT MD [facility] RAD LT FLANK PAIN [id number] 12/11/2013 03:51:00 12/11/2013 05:20:00 DIS Emergency BRUEGGEMANN MD, RADHAMES Pickett [facility] ER RENAL COLIC [id number] 11/26/2013 09:21:00 11/26/2013 23:59:59 CLS Outpatient CLAUDIA CANTOR MD [facility] CARD CAD,HTN,CP,HLP [id number] 12/07/2012 11:53:00 12/07/2012 23:59:59 CLS Outpatient CLAUDIA CANTOR MD [facility] CARD CAD [id number] 10/28/2012 08:17:00 10/28/2012 16:00:00 DIS Outpatient CLAUDIA CANTOR MD [facility] CATH CHEST PAIN [id number] 01/28/2017 16:30:00 01/28/2017 23:59:59 CLS Outpatient GERSON CUMMINS [facility] D[facility]
[2017-06-14 12:45] VITALS: BP 129/86
--- NOTE | 2017-06-14 13:27 | Progress Note-Pre Operative ---
Pre-Operative Progress Note H&P Reviewed The H&P was reviewed, patient examined and no changes noted. Date Seen by Provider: Jun 14, 2017 Time Seen by Provider: 13: Date H&P Reviewed: Jun 14, 2017 Time H&P Reviewed: 13:27 Pre-Operative Diagnosis: screening colonoscopy, gerd MADONNA MCKEON DO Jun 14, 2017 13:27
[2017-06-14] MEDS ORDERED: VITA-189 PO (13:41)
[2017-06-14] MEDS ORDERED: METF500T4 PO (13:41)
[2017-06-14] MEDS ORDERED: GLUC-116 PO (13:41)
[2017-06-14] MEDS ORDERED: MELO15TA39 PO (13:41)
[2017-06-14] MEDS ORDERED: LACTATED RINGERS 1,000 ML IV ONE ×2 (13:41→13:45)
[2017-06-14] MEDS ORDERED: proPOfol 200 MG/20 ML (DIPRIVAN) VIAL IV ONE (13:45)
[2017-06-14] MEDS ORDERED: NS IV 500 ML 500 ML IV ONE (14:00)
--- NOTE | 2017-06-14 14:24 | Progress Note-Post Operative ---
Post-Operative Progess Note Surgeon (s)/Telemarketer (s) Surgeon MADONNA MCKEON DO Telemarketer: na Pre-Operative Diagnosis screening colonoscopy, gerd Post-Operative Diagnosis antral ulcer healing, gastritis, hiatal hernia, normal colon Procedure & Operative Findings Date of Procedure 06/14/17 Procedure Performed/Findings egd c biopsies and colonoscopy Anesthesia Type general Estimated Blood Loss Estimated blood loss (mL): none Specimens/Packing Specimens Removed antrum, ge junction MADONNA MCKEON DO Jun 14, 2017 14:24
[2017-06-14] MEDS ORDERED: PANT40TA2 PO (14:25)
[2017-06-14] MEDS ORDERED: SUCR1TAB36 PO (14:25)
--- NOTE | 2017-06-14 14:26 | Discharge Inst-Simple/Standard ---
Discharge Inst-Standard Discharge Medications New, Converted or Re-Newed RX: Transmitted to Pharmacy Patient Instructions/Follow Up Plan of Care/Instructions/FU: 2 weeks joseph Activity as Tolerated: Yes Discharge Diet: Regular Diet MADONNA MCKEON DO Jun 14, 2017 14:26
[2017-06-14 14:30] VITALS: BP 130/82
--- NOTE | 2017-06-14 14:56 | Anesthesia-General Post-Op ---
MAC Patient Condition Mental Status/LOC: Same as Preop Cardiovascular: Satisfactory Nausea/Vomiting: Absent Respiratory: Satisfactory Pain: Controlled Complications: Absent Post Op Complications Complications None Follow Up Care/Instructions Patient Instructions None needed. Anesthesiology Discharge Order Discharge Order Patient is doing well, no complaints, stable vital signs, no apparent adverse anesthesia problems. No complications reported per nursing. REDDY NAVARRETE CRNA Jun 14, 2017 14:56
[2017-06-14 15:00] VITALS: BP 130/82
[2017-06-14 15:15] VITALS: BP 130/82
--- NOTE | 2017-06-14 21:54 | OPERATIVE REPORT ---
DATE OF SERVICE: 06/14/2017 PREOPERATIVE DIAGNOSES: Gastroesophageal reflux disease and screening colonoscopy. POSTOPERATIVE DIAGNOSES: Antral ulcer healing, gastritis, hiatal hernia, normal colon. PROCEDURE: EGD with biopsies of the antrum and GE junction and colonoscopy. SURGEON: Madonna Denny DO ANESTHESIA: Per CERTIFIED OPHTHALMIC SURGICAL ASSISTANT. ESTIMATED BLOOD LOSS: None. COMPLICATIONS: None. INDICATIONS: The patient is a 77-year-old male with gastroesophageal reflux disease and is due for screening colonoscopy. He understands risks and benefits of procedure and wished to proceed with procedure. Consent was on chart. DESCRIPTION OF PROCEDURE: The patient was taken to the endoscopy suite, placed in left lateral recumbent position. Timeout was performed. Scope was inserted into the mouth, down the esophagus, stomach and into the duodenum without difficulty. There were no polyps, mass, or ulceration of the duodenum. Scope was slowly retracted back into the stomach, which was further insufflated. Within the antrum, a small ulceration that appears healing was present. Biopsies of this area were obtained. Scope was retroflexed noting a small hiatal hernia. No other pathology noted. Scope was returned to its normal position. There was some gastritis present. Scope was then slowly retracted back into the distal esophagus. Some slight erythematous changes, no polyps, masses or ulcerations. Biopsy of the GE junction was obtained. Scope was then slowly retracted back to completely remove, noting no other pathology. Digital rectal exam was performed. There were no palpable polyps, masses, ulcerations. Scope was inserted in the rectum and advanced all the way to the cecum with minimal difficulty. Prep was adequate. Scope was then slowly retracted back. There were no polyps, mass or ulcerations within the cecum, ascending, transverse, descending and sigmoid colon. Once in the rectum, scope was also retroflexed noting no other pathology except for some slight hemorrhoidal disease. Scope was then returned to its normal position, slowly withdrawn until completely removed. The patient tolerated procedure well without any complications, taken to recovery room in stable condition. RECOMMENDATIONS: The patient will be started on Protonix 40 mg daily and Carafate 1 gram four times a day. The patient will follow up in the office in approximately 2 to 3 weeks. He will need repeat colonoscopy in 10 years unless he has any change of condition, which he should be reevaluated at that time. Job ID: [id number] DocumentID: [id number] Dictated Date: 06/14/2017 14:29:23 Service Tester Date: 06/14/2017 21:54:40 Dictated By: MADONNA DENNY DO
== END 2017-06-14 15:15 | disposition home or self-care (01) ==
LOC: ENDO 12:21
PROVIDERS: ATTEND Surgery
DX: Z12.11 Encounter for screening for malignant neoplasm of colon (principal); K21.9 Gastro-esophageal reflux disease without esophagitis; K44.9 Diaphragmatic hernia without obstruction or gangrene; K29.70 Gastritis, unspecified, without bleeding; K25.7 Chronic gastric ulcer without hemorrhage or perforation; K64.9 Unspecified hemorrhoids; I10 Essential (primary) hypertension; E78.2 Mixed hyperlipidemia; I25.10 Atherosclerotic heart disease of native coronary artery without angina pectoris; E11.9 Type 2 diabetes mellitus without complications; Z79.82 Long term (current) use of aspirin; Z79.84 Long term (current) use of oral hypoglycemic drugs; Z79.899 Other long term (current) drug therapy
CPT/HCPCS: 82962

== ENCOUNTER 2017-10-18 11:16 | Outpatient (RCR) | payer MEDICARE, MEDICAID ==
[~2017-10-18 11:16] MED LIST changes: +GLUC-116 PO; +MELO15TA39 PO; +METF-397 PO; +PANT40TA2 PO; +SUCR1TAB36 PO; +VITA-189 PO
== END 2017-11-10 12:55 | disposition home or self-care (01) ==
PROVIDERS: ATTEND Nurse Practitioner Community Health
DX: M19.041 Primary osteoarthritis, right hand (principal); M19.042 Primary osteoarthritis, left hand

== ENCOUNTER → 2018-12-06 | Outpatient (CLI) | payer MEDICARE, MEDICAID ==
[~2018-12-06] VITALS: Ht 170 cm; Wt 73.0 kg
[~2018-12-06] MED LIST changes: +CATHETER FLUSH 10 ML SYR IV PRN
[2018-12-06 08:57] VITALS: BP 156/91
--- NOTE | 2018-12-06 19:19 | STRESS TEST ---
DATE OF SERVICE: 12/06/2018 EXERCISE MYOVIEW STRESS TEST REFERRING PHYSICIAN: [facility] Baseline heart rate is 59, baseline blood pressure 113/85. Baseline EKG is sinus rhythm with no ischemic changes. In summary, the patient was injected with 10.23 mCi of technetium-99 Myoview and the resting images were obtained. Then, the patient started exercising with a baseline heart rate, blood pressure and EKG mentioned above. He was able to exercise for 4 minutes 30 seconds on standard Jayy protocol, achieving maximum heart rate of 129, which is 92% of maximum expected heart rate. With peak exercise level, EKG was showing minimal nondiagnostic changes. Blood pressure was 167/89. During recovery, heart rate and blood pressure returned to baseline. EKG returned to baseline. The resting and stress images were reviewed and compared in the short axis, horizontal long axis, and vertical long axis views. Review of the images showed good radiotracer uptake with no ischemia or infarction. SSS is 1, SDS 1, and TID value 1.03. On the gated images, the left ventricle appeared to be normal size with normal contractility. Calculated ejection fraction is 62%. CONCLUSION: 1. Good exercise tolerance, a total of 4 minutes 30 seconds on standard Jayy protocol, total of 6.4 METs achieving 92% of maximum expected heart rate. 2. Nondiagnostic EKG changes with exercise returned to baseline during recovery. 3. Appropriate heart rate and blood pressure response to exercise returned to baseline during recovery. 4. No ischemia or infarction on SPECT images. 5. Normal left ventricular size with normal contractility. Calculated ejection fraction is 62%. Job ID: [id number] DocumentID: [id number] Dictated Date: 12/06/2018 13:20:54 Mat Weaver Date: 12/06/2018 19:18:24 Dictated By: CLAUDIA VELA MD
== END ==
LOC: CARD 07:03
PROVIDERS: ATTEND Internal Medicine Cardiovascular Disease
DX: I25.10 Atherosclerotic heart disease of native coronary artery without angina pectoris (principal); I10 Essential (primary) hypertension; E78.2 Mixed hyperlipidemia
CPT/HCPCS: 78452; 93017

== ENCOUNTER → 2020-06-25 | Outpatient (CLI) | payer MEDICARE, MEDICAID ==
[~2020-06-25] MED LIST changes: -CATHETER FLUSH 10 ML SYR IV PRN
== END ==
LOC: LABNPT 06:31
PROVIDERS: ATTEND Internal Medicine Cardiovascular Disease
DX: Z53.9 Procedure and treatment not carried out, unspecified reason (principal)

== ENCOUNTER → 2020-06-30 | Outpatient (CLI) | payer MEDICARE, MEDICAID ==
[2020-06-30 13:36] LABS: HEMOGLOBIN 13.1 g/dL (13.3-17.7); MEAN PLATELET VOLUME 10.2 fL (9.0-12.2); WHITE BLOOD COUNT 5.9 10^3/uL (4.3-11.0)
[2020-06-30 13:52] LABS: ALANINE AMINOTRANSFERASE 26 U/L (0-55); ALBUMIN 4.2 GM/DL (3.2-4.5); ALKALINE PHOSPHATASE 53 U/L (40-136); BILIRUBIN,TOTAL 0.6 MG/DL (0.1-1.0); BUN/CREATININE RATIO 21; CARBON DIOXIDE 25 MMOL/L (21-32); CHLORIDE 104 MMOL/L (98-107); CREATININE SERUM 0.92 MG/DL (0.60-1.30); GFR ESTIMATED > 60; GLUCOSE 90 MG/DL (70-105); SODIUM 138 MMOL/L (135-145); TOTAL PROTEIN 6.8 GM/DL (6.4-8.2)
== END ==
LOC: LAB 13:09
PROVIDERS: ATTEND Internal Medicine Cardiovascular Disease
DX: R07.9 Chest pain, unspecified (principal)
CPT/HCPCS: 36415; 80053; 85027; 85730

== ENCOUNTER → 2020-07-29 | Outpatient (CLI) | payer MEDICARE, MEDICAID ==
--- NOTE | 2020-07-29 18:17 | Diagnostic Imaging Report ---
Exam: Nuclear medicine gastric emptying study. Date: July 29, 2020. Indication: 80-year-old male, evaluation for delayed gastric emptying. Abdominal pain. Comparison: None. Findings: 1.1 mCi of technetium labeled sulfur colloid was administered. Subsequent anterior and posterior scintigraphic images of the stomach were obtained over a 4 hour timeframe for calculation of gastric emptying. At 1 hour, there is approximately 82% gastric emptying. At 2 hours, there is approximately 94% gastric emptying. At 3 hours, there is approximately 94% gastric emptying. At 4 hours, there is approximately 96% gastric emptying. Impression: 1. Findings consistent with rapid gastric emptying. Dictated by: Dictated on workstation # [id number]
== END ==
LOC: CARD 08:02
PROVIDERS: ATTEND Nurse Practitioner
DX: K29.70 Gastritis, unspecified, without bleeding (principal); K29.80 Duodenitis without bleeding; K21.00 Gastro-esophageal reflux disease with esophagitis, without bleeding
CPT/HCPCS: 78264; 82947

== ENCOUNTER 2020-11-25 10:55 | Outpatient (RCR) | payer MEDICARE, MEDICAID | END 2021-01-26 | disposition home or self-care (01) | PROVIDERS: ATTEND Otolaryngology Otolaryngology/Facial Plastic Surgery | DX: H81.10 Benign paroxysmal vertigo, unspecified ear (principal); R26.9 Unspecified abnormalities of gait and mobility; I10 Essential (primary) hypertension; E11.9 Type 2 diabetes mellitus without complications; E66.9 Obesity, unspecified ==

== ENCOUNTER → 2020-12-30 | Outpatient (CLI) | payer MEDICARE, MEDICAID ==
--- NOTE | 2020-12-30 13:52 | Diagnostic Imaging Report ---
INDICATION: Postmenopausal. COMPARISON: None FINDINGS: The bone mineral density of the spine, hips and femoral necks was measured. The T score for the spine is -2.1. This value falls within the range of osteopenia. However, it should be noted that the T score for L2 is -2.7 and this does indicate osteoporosis. The T score for each hip is -1.7, the T score for the left femoral neck is -2.3 and for the right -2.0. All these values fall in the range of osteopenia. AP Spine L1-L4: [BMD (g/cm2): 0.993] [T-Score: -2.1] [Z-Score: NA] [BMD Previous: NA] [BMD % Change: NA] LT Hip Neck: [BMD (g/cm2): 0.768] [T-Score: -2.3] [Z-Score: NA] LT Hip Total: [BMD (g/cm2):0.853] [T-Score:-1.7] [Z-Score: NA] [BMD Previous: NA] [BMD % Change: NA] RT Hip Neck: [BMD (g/cm2):0.807] [T-Score:-2.0] [Z-Score:NA] RT Hip Total: [BMD (g/cm2):0.863] [T-score:-1.7] [Z-Score:NA] [BMD Previous:NA] [BMD % Change:NA] *Indicates significant change from prior examination based on 95% confidence level. World Health Organization criteria for BMD interpretation classify patients as Normal (T-score at or above -1.0), Osteopenic (T-score between -1.0 and -2.5) or Osteoporotic (T-score at or below -2.5). LIMITATIONS AND MODIFICATION: None. FRACTURE RISK (FRAXIN SCORE): The ten year probability of (%): Major Osteoporotic Fracture: [10.1] Hip Fracture: [4.5] IMPRESSION: 1. There is osteopenia of the spine, hips and the femoral necks. 2. The T score for the L2 vertebral body does indicate osteoporosis. 3. See below National Osteoporosis Foundation guidelines on when to potentially initiate pharmacologic therapy. Based on the National Osteoporosis Foundation Guidelines, pharmacologic treatment should be initiated in any of the following, unless clinical conditions suggest otherwise: * Any patient with prior fragility fracture of the hip or vertebrae. A spine fracture indicates 5X risk for subsequent spine fracture and 2X risk for subsequent hip fracture. * Osteoporosis (T-score <-2.5). * Postmenopausal women and men age 50 and older with low bone mass/osteopenia (T-score between -1.0 and -2.5) by DXA and 10-year major osteoporotic fracture greater than 20% or a 10-year probability of hip fracture greater than 3%. These fracture risks are supplied above in the FRAX score, if applicable. * Clinician judgement and/or patient preferences may indicate treatment for people with 10-year fracture probabilities above or below these levels. Dictated by: Dictated on workstation # [id number]
== END ==
LOC: RAD 11:11
PROVIDERS: ATTEND Family Medicine
DX: M85.89 Other specified disorders of bone density and structure, multiple sites (principal)
CPT/HCPCS: 77080

== ENCOUNTER → 2021-12-09 | Outpatient (CLI) | payer MEDICARE, MEDICAID ==
[~2021-12-09] MED LIST changes: +CATHETER FLUSH 10 ML SYR IVP PRN
[2021-12-09 09:10] VITALS: BP 123/75
--- NOTE | 2021-12-09 13:11 | Cardiology Stress Test Report ---
Stress Test Report Date of Procedure/Referring: Date of Procedure: Dec 09, 2021 PCP Tonio Sharp MD Admitting Physician Admitting Physician: Attending Physician: Claudia Cantor MD Indications: CAD Baseline Heart Rate: 61 Baseline Blood Pressure: Blood Pressure Systolic: 123 Blood Pressure Diastolic: 75 Vital Signs Date Time Temp Pulse Resp B/P (MAP) Pulse Ox O2 Delivery O2 Flow Rate FiO2 12/09/21 09:10 61 123/75 (91) Baseline Vital Signs Vital Signs Date Time Temp Pulse Resp B/P (MAP) Pulse Ox O2 Delivery O2 Flow Rate FiO2 12/09/21 09:10 61 123/75 (91) Baseline EKG: Baseline EKG: NSR Summary: After explaining the procedure and details to the patient, he signed the con sent and was brought to the stress nuclear laboratory. Patient exercised on standard Jayy protocol, EKG, heart rate and blood pressure were monitored continuously, resting and stress doses of radio tracer were injected, imaging was acquired and reviewed in the short axis, horizontal long axis and vertical long axis views Patient was able to exercise for a total of 4 minutes on Jayy protocol, METs 5.8 Maximum heart rate 124 Maximum blood pressure 164/83 Stress EKG, Minimal nondiagnostic changes Recovery EKG, Return to baseline TID: 1.05 SSS: 2 SDS: 1 EF: 57 Conclusion: 1. Good exercise tolerance for a total of 4 minutes on standard Jayy protocol, 5.8 METS achieving 90% of maximum expected heart rate 2. Appropriate heart rate and blood pressure response to exercise return to baseline during recovery 3. Nondiagnostic EKG changes with exercise return to baseline during recovery 4. Diaphragmatic attenuation with no significant ischemia or infarction on SPECT images 5. Normal left ventricular size, ejection fraction 57% Copy Copies To 1: [facility] [place] CLAUDIA CANTOR MD Dec 09, 2021 13:11
== END ==
LOC: CARD 07:30
PROVIDERS: ATTEND Internal Medicine Cardiovascular Disease
DX: I25.10 Atherosclerotic heart disease of native coronary artery without angina pectoris (principal); I10 Essential (primary) hypertension
CPT/HCPCS: 78452; 93017; A9502

== ENCOUNTER → 2022-11-12 | Outpatient (CLI) | payer MEDICARE, MEDICAID ==
[~2022-11-12] MED LIST changes: -CATHETER FLUSH 10 ML SYR IVP PRN; +HOLD METFORMIN - RECEIVED CONTRAST 20 ML VIAL IV SCH; +IOHEXOL 350 MG/ML 100 ML (OMNIPAQUE 350) VIAL IV ONE; +NS 100 ML (IVPB) BAG IV ONE
[2022-11-12 08:44] LABS: CREATININE SERUM 0.86 MG/DL (0.60-1.30)
--- NOTE | 2022-11-12 09:38 | Diagnostic Imaging Report ---
PROCEDURE: CT orbits with Contrast. TECHNIQUE: Multiple contiguous axial images were obtained through the orbits with intravenous contrast. Coronal reformations were performed. All CT scans use one or more of the following dose optimizing techniques: automated exposure control, MA and/or KvP adjustment based on a patient size and exam type, or iterative reconstruction. INDICATION: Left-sided proptosis. Left eye pain. COMPARISON: None FINDINGS: Both globes are intact. No post septal inflammation is seen. No evidence of mass or hematoma in the post septal soft tissues. The retrobulbar fat is preserved. The optic nerves have a normal appearance. The extraocular muscles are symmetric and unremarkable. No significant proptosis is seen bilaterally. The cavernous sinuses have a normal CT appearance. Small amount of retained secretions are seen in the right maxillary sinus. No evidence of acute sinusitis. No acute facial fractures are seen. The included intracranial contents have a normal appearance. IMPRESSION: 1. No evidence of mass or hematoma in the post septal soft tissues. No post septal inflammation. 2. The extraocular muscles are symmetric and unremarkable. No significant proptosis is identified. Dictated by: Dictated on workstation # [id number]
== END ==
LOC: RAD 08:18
PROVIDERS: ATTEND Ophthalmology
DX: H05.20 Unspecified exophthalmos (principal)
CPT/HCPCS: 36415; 70481; 82565; 84520

== ENCOUNTER → 2023-01-07 | Outpatient (CLI) | payer MEDICARE, MEDICAID ==
[~2023-01-07] MED LIST changes: -HOLD METFORMIN - RECEIVED CONTRAST 20 ML VIAL IV SCH; -IOHEXOL 350 MG/ML 100 ML (OMNIPAQUE 350) VIAL IV ONE; -NS 100 ML (IVPB) BAG IV ONE
--- NOTE | 2023-01-07 17:15 | Diagnostic Imaging Report ---
CLINICAL INDICATION: Patient with chronic low back pain with right hip sciatica. EXAM: X-ray of the lumbar spine, multiple views. COMPARISON: None. FINDINGS: There is a roughly 30-40% anterior wedged compression deformity involving the L2 vertebra, which is of unknown age. There are degenerative spurs involving the mid to upper lumbar spine. There is lower lumbar spine facet arthropathy. There is mild sclerosis of the sacroiliac joints. There is incompletely imaged right curvature of the thoracic spine. IMPRESSION: 1: There is an L2 vertebral body compression fracture of unknown age. If there is concern for recent trauma or an acute fracture, CT scan of the lumbar spine would better evaluate. 2: There is lumbar spine degenerative disease. Dictated by: Dictated on workstation # [id number]
--- NOTE | 2023-01-07 18:56 | Diagnostic Imaging Report ---
EXAMINATION: Right hip radiographs, 2 views. COMPARISON: None. HISTORY: 82-year-old male, chronic low back and right lower extremity radiculopathy. FINDINGS: There is no identified acute fracture. The right hip is not dislocated. There is no joint space loss of the right hip, osteophyte formation, or subchondral cystic change. IMPRESSION: 1. Grossly unremarkable radiographs of the right hip. Dictated by: Dictated on workstation # [id number]
== END ==
LOC: RAD 09:31
PROVIDERS: ATTEND Family Medicine
DX: M51.36 Other intervertebral disc degeneration, lumbar region (principal); M48.56XA Collapsed vertebra, not elsewhere classified, lumbar region, initial encounter for fracture; M25.551 Pain in right hip
CPT/HCPCS: 72110; 73502

== ENCOUNTER → 2023-01-18 | Outpatient (CLI) | payer MEDICARE, MEDICAID ==
--- NOTE | 2023-01-18 11:51 | Diagnostic Imaging Report ---
INDICATION: Postmenopausal screening COMPARISON: 12/30/2020 FINDINGS: AP Spine L1-L4: [BMD (g/cm2): 0.975] [T-Score: -2.2] [Z-Score: NA] [BMD Previous: 0.993] [BMD % Change: -1.8] LT Hip Neck: [BMD (g/cm2): 0.801] [T-Score: -2.1] [Z-Score: NA] LT Hip Total: [BMD (g/cm2):0.831] [T-Score:-1.9] [Z-Score: NA] [BMD Previous: 0.853] [BMD % Change: -2.6] RT Hip Neck: [BMD (g/cm2):0.809] [T-Score:-2.0] [Z-Score:NA] RT Hip Total: [BMD (g/cm2):0.803] [T-score:-2.1] [Z-Score:NA] [BMD Previous:0.863] [BMD % Change:-7.0*] *Indicates significant change from prior examination based on 95% confidence level. World Health Organization criteria for BMD interpretation classify patients as Normal (T-score at or above -1.0), Osteopenic (T-score between -1.0 and -2.5) or Osteoporotic (T-score at or below -2.5). LIMITATIONS AND MODIFICATION: None. FRACTURE RISK (FRAX SCORE): The ten year probability of (%): Major Osteoporotic Fracture: [8.9] Hip Fracture: [3.7] IMPRESSION: 1. Osteopenia (Low bone mass). 2. Bone mineral density has decreased by a statistically significant amount, as detailed above. 3. See below National Osteoporosis Foundation guidelines on when to potentially initiate pharmacologic therapy. Based on the National Osteoporosis Foundation Guidelines, pharmacologic treatment should be initiated in any of the following, unless clinical conditions suggest otherwise: * Any patient with prior fragility fracture of the hip or vertebrae. A spine fracture indicates 5X risk for subsequent spine fracture and 2X risk for subsequent hip fracture. * Osteoporosis (T-score <-2.5). * Postmenopausal women and men age 50 and older with low bone mass/osteopenia (T-score between -1.0 and -2.5) by DXA and 10-year major osteoporotic fracture greater than 20% or a 10-year probability of hip fracture greater than 3%. These fracture risks are supplied above in the FRAX score, if applicable. * Clinician judgement and/or patient preferences may indicate treatment for people with 10-year fracture probabilities above or below these levels. Dictated by: Dictated on workstation # [id number]
== END ==
LOC: RAD 10:08
PROVIDERS: ATTEND Family Medicine
DX: M85.89 Other specified disorders of bone density and structure, multiple sites (principal); E55.9 Vitamin D deficiency, unspecified
CPT/HCPCS: 77080